=== PATIENT | female | born 1960 | race Caucasian/White ===

== ENCOUNTER 2016-11-18 13:35 | Inpatient (IN) ==
[2016-11-18] MEDS ORDERED: METOCLOPRAMIDE 10 MG/2 ML VIAL IV STA ×2 (14:13→16:40)
[2016-11-18] MEDS ORDERED: PANTOPRAZOLE 40 MG VIAL IV STA (14:13)
[2016-11-18] MEDS ORDERED: SODIUM CHLORIDE 0.9% 1,000 ML IV STA (14:13)
[2016-11-18] MEDS ORDERED: DICYCLOMINE 20 MG/2 ML AMP IM ONE ×2 (14:13→14:56)
[2016-11-18] MEDS ORDERED: ONDANSETRON 4 MG/2 ML VIAL IV STA ×2 (14:13→16:51)
[2016-11-18] MEDS ORDERED: LORazepam 2 MG/1 ML VIAL IV STA (14:13)
--- NOTE | 2016-11-18 14:22 | Emergency Department Note ---
Arrival - Arrival Chief Complaint: Nausea/Vomiting/Diarrhea Stated Complaint: vomiting,back pain,migraine,stomach ED Nursing Triage Note: c/o being evaluated here last night for the same complaint of nuasea/vomiting and diarrhea, states was discharged from here this am around 0300 and dx with a virus., states she was given zofran otd but its coming up and the zofran is not helping her, also states she is having a headache ,+ lower abd.pain and lower back pain Mode of Arrival: Wheelchair Limitations: No Limitations Source: Patient Time Seen by Provider: 11/18/16 14:13 - History of Present Illness HPI Narrative: This 56-year-old white female presents for a second time the last 24 hours for complaints of severe nausea, vomiting, diarrhea, abdominal cramps, and back pain. After thorough workup last night there was no significant pathology discovered. The patient states that since she left she has not been able to keep anything down has been continuously vomiting and having diarrhea without bright red blood or black tarry bowel movements. The patient states that she is unable to control her nausea and vomiting because she cannot keep the Zofran under the tongue in her mouth. She does state that she needs something desperately for pain as in addition to the symptoms last night she is now complaining of back pain and with the back pain a flare of her migraines. This back pain is in absence of dysuria, urgency, or frequency as well as any falls or injuries since seen last night. Onset (ago): hour(s) (Patient presents 24 hours post onset of symptoms) Date of Last Menstrual Period: hyst Allergies/Adverse Reactions: Allergies Allergy/AdvReac Type Severity Reaction Status Date / Time No Known Allergies Allergy Verified 11/18/16 13:56 Home Medications: Home Medications Medication Instructions Recorded Confirmed Type Ondansetron Odt Tab [Zofran Odt] 4 mg PO Q6H PRN #12 tablet 11/18/16 11/18/16 Rx Review of System - Review of System 12 point system: reviewed and no additional remarkable complaints except as stated - Review of System Constitutional: Present: as per HPI Gastrointestinal: Present: as per HPI Genitourinary female: Present: as per HPI Medical,Surgical,& Family Hx - Medical History Cardio: History of: Hypertension Endocrine: History of: Dyslipidemia No history of: Diabetes Mellitus (IDDM) Gastrointestinal: History of: Diverticulitis/ Diverticulosis - Surgical History Abdominal Surgeries: Surgical HX of: Cholecystectomy, Colonoscopy, EGD Reproductive Surgeries: Surgical HX of;: Hysterectomy Orthopedic Surgeries: Surgical HX of;: Total Knee Replacement (left/right) - Social History Smoking Status: Never smoker Frequency of Alcohol Use: None Type of Drug Use: None Exam Physical Examination: GENERAL: Well developed, well nourished emotional white female holding an emesis bag and complaining of pain. HEENT: Normocephalic. No trauma. Moist mucous membranes. EOMI. PERRLA. ENT NML NECK: Supple. No adenopathy. CARDIAC: Regular. No murmurs. Heart rate 60 CHEST: Clear to auscultation. No respiratory distress. O2 sat 97% ABDOMEN: Soft. Midepigastric tenderness. Active bowel sounds. EXTREMITIES: No trauma. Normal ROM. No pedal edema. SKIN: No diaphoresis. No rash. NEURO: Alert. Emotional but neuro intact. No focal deficits. Vital Signs: Vital Signs Temperature 97.1 F L 11/18/16 14:15 Pulse Rate 75 11/18/16 17:00 Respiratory Rate 20 11/18/16 17:00 Blood Pressure 178/98 11/18/16 17:00 O2 Sat by Pulse Oximetry 98 11/18/16 17:00 Course Course Narrative: During the stay in the ER the patient did demonstrate recurrent emesis and dry heaves which would not resolve with antiemetics. - Reevaluation(s) Reevaluation #1: Discussed with patient the fact that we put hospitalize under observation to stabilize her nausea and vomiting. - Consultations Consultation #1: Discussed with hospitalist service who will admit for further evaluation treatment. Results - Labs CBC & BMP: 11/18/16 15:52 11/18/16 15:26 Labs: I reviewed the lab and noted the low potassium. - Impressions EKG: Sinus rhythm at 89 with normal NM interval and QRS duration. Left ventricular hypertrophy noted nonspecific ST changes noted no acute injury pattern noted. - Diagnostic Findings Procedure: KUB x-ray: image reviewed by me, report reviewed by me (Nonspecific gas and feces pattern), X-ray: image reviewed by me, report reviewed by me ( Straightening of the lumbar spine consistent with spasm) Disposition Clinical Impression: Presumed viral gastroenteritis, Hypokalemia, Lumbar spasm Case discussed with: patient Disposition: Still a Patient Condition: Stable Time of Disposition: 17:28
[2016-11-18] MEDS ORDERED: ONDANSETRON 4 MG/2 ML VIAL ONE ×2 (14:56→16:51)
[2016-11-18] MEDS ORDERED: PANTOPRAZOLE 40 MG VIAL IV ONE (14:56)
[2016-11-18] MEDS ORDERED: METOCLOPRAMIDE 10 MG/2 ML VIAL ONE ×2 (14:56→16:51)
[2016-11-18] MEDS ORDERED: LORazepam 2 MG/1 ML VIAL ONE (14:57)
[2016-11-18 15:18] LABS: Apearance,Urine CLOUDY (Clear); Bilirubin,Urine Negative (Negative); Blood, Urine Moderate mg/dL (Negative); Glucose,Urine (UA) Negative (Negative); Hyaline Casts,Urine 1 /LPF (0-3); Ketones,Urine 80 mg/dL (Negative); Mucus,Urine Few /LPF (Occasional); Nitrite,Urine Negative (Negative); Protein,Urine 30 MG/DL; RBC,Urine 15 /HPF (0-4); Squamous Epithelial Cell,Urine Moderate /HPF (0-10); Urine Color Yellow (Yellow); Urine Specific Gravity 1.021 (1.001-1.035); Urine Urobilinogen < 2.0 EU/DL (0.2-1.0); WBC,Urine 2 /HPF (0-6)
--- NOTE | 2016-11-18 15:22 | EKG Report ---
Stationary ECG Study [facility] Test Date: 11/18/2016 3:22:30 PM Pat Name: [facility] ER Department: Room: Gender: F [employer]: ALY : 1960 Requested by: Morgan Reardon Order Number: [id number] Reading MD: REGINO BUSTAMANTE Intervals [place] Rate: 69 P: 53 CT: 173 QRS: 1 QRSD: 95 T: 48 QT: 410 QTc: 429 Interpretive Statements SINUS RHYTHM MINIMAL VOLTAGE CRITERIA FOR LVH, CONSIDER NORMAL VARIANT Electronically Signed On 11-20-16 08:50:34 CDT by REGINO BUSTAMANTE [email or web address]
[2016-11-18 15:25] LABS: Barbiturates Screen,Urine Negative (Negative); Benzodiazepines Screen,Urine Negative (Negative); Cannabinoid Screen,Urine Negative (Negative); Opiate Screen,Urine Positive (Negative); Phencyclidine Screen,Urine Negative (Negative)
--- NOTE | 2016-11-18 15:33 | XRay Report ---
XR lumbar spine AP/LAT Clinical Information: back pain Comparison: None available Findings: Vertebral body heights and alignment are within normal limits. Mild facet arthropathy and disc space loss is noted at L4-5 and L5-S1. Otherwise, intervertebral disc spaces are generally maintained. There is no acute fracture or subluxation identified. No suspicious osseous or soft tissue lesions are identified. Impression: No acute fracture or subluxation in the Lumbar spine. Mild degenerative changes. PROCEDURE INTERPRETED AT [facility] DEPARTMENT OF RADIOLOGY Final Report Signed by: Сергей Stewart
[2016-11-18 16:06] LABS: Basophils % 0.2 % (0.0-0.8); Hematocrit 44.2 VOL% (35.7-47.0); Hemoglobin 15.2 GM/DL (12.0-16.0); Immature Granulocytes % 0.3 %; Immature Granulocytes Absolute 0.03 #; Lymphocytes # 1.5 10*3/uL (1.4-4.0); Lymphocytes % 13.5 % (21.3-54.2); Mean Corpuscular HGB Conc 34.4 GM/DL (32-36); Mean Corpuscular Hemoglobin 30 PG (27-34); Mean Corpuscular Volume 87.4 FL (87-102); Mean Platelet Volume 9.9 FL (9.6-12.0); Monocytes # 0.6 10*3/uL (0.11-0.8); Monocytes % 5.2 % (1.7-12.7); Neutrophils # 8.7 10*3/uL (1.4-7.4); Neutrophils % 80.8 % (38.7-73.9); Platelet Count 292 T/CUMM (130-400); Red Blood Count 5.06 MC/CUMM (3.8-5.5); Red Cell Distribution Width 13.1 % (9.3-17.3); White Blood Count 10.7 T/CUMM (4-12)
--- NOTE | 2016-11-18 16:08 | XRay Report ---
XR abdomen 2V Clinical Information: Abdominal Pain lower abdomen Comparison: None Findings: Bowel gas pattern is nonspecific and within normal limits. No abnormally dilated small bowel loops are identified to suggest obstruction. There is no free air identified. Scattered fecal material is noted throughout colon, which is otherwise nondilated. No abnormal focal soft tissue masses or calcific densities are identified in the abdomen or pelvis. Lung bases appear predominantly clear. There is no acute osseous abnormality. No suspicious osseous lesions are identified. Probable benign bone island within the right iliac wing. Impression: No acute radiographic abnormality in the abdomen. A mild degree of fecal stasis/constipation is suspected. PROCEDURE INTERPRETED AT [facility] DEPARTMENT OF RADIOLOGY Final Report Signed by: Сергей Stewart
[2016-11-18 16:28] LABS: Lactic Acid 1.6 MMOL/L (0.4-2.0)
[2016-11-18 16:31] LABS: Alanine Aminotransferase 68 U/L (13-56); Albumin 4.1 G/DL (3.4-5.0); Alkaline Phosphatase 71 U/L (45-117); Amylase 38 U/L (25-115); Aspartate Amino Transferase 37 U/L (0-37); Blood Urea Nitrogen 10 MG/DL (7-18); Calcium 9.1 MG/DL (8.5-10.1); Glucose 95 MG/DL (74-106); Osmolality,Calculated 271.8 MOS/KG (273-304); Potassium 3.3 MMOL/L (3.5-5.1); Sodium 137 MMOL/L (136-145); Total Protein 8.1 G/DL (6.4-8.3); Troponin I Only < 0.015 NG/ML (0.00-0.045)
[2016-11-18] MEDS ORDERED: KETOROLAC 30 MG/1 ML VIAL IV STA (16:40)
[2016-11-18] MEDS ORDERED: SUMAtriptan 6 MG/0.5 ML VIAL SUBCUT STA (16:40)
[2016-11-18] MEDS ORDERED: POTASSIUM BICARB EFFERVESCENT 25 MEQ TABLET PO ONE ×3 (16:41→16:56)
[2016-11-18] MEDS ORDERED: SUMAtriptan 6 MG/0.5 ML VIAL SUBCUT ONE (16:50)
[2016-11-18] MEDS ORDERED: KETOROLAC 30 MG/1 ML VIAL ONE (16:51)
[2016-11-18] MEDS ORDERED: DOCUSATE SODIUM 100 MG CAPSULE PO PRN (17:41)
[2016-11-18] MEDS ORDERED: ACETAMINOPHEN 325 MG TABLET PO PRN (17:41)
--- NOTE | 2016-11-18 18:11 | Hospitalist History & Physical ---
Assessment and Plan (1) Intractable nausea and vomiting Status: Acute Assessment and plan: admit for IVF and antiemetics. Current Visit: Yes Qualifiers: Vomiting type: unspecified Qualified Code(s): R11.2 - Nausea with vomiting , unspecified (2) Abdominal pain Status: Acute Current Visit: Yes Qualifiers: Abdominal location: left lower quadrant Qualified Code(s): R10.32 - Left lower quadrant pain (3) Gastroenteritis Status: Acute Assessment and plan: admit for supportive care. Current Visit: No History of Present Illness Chief complaint: Nausea, vomiting, diarrhea and abdominal pain History of present illness: Ms. Cruz is a 56 year old female that presents to the emergency department with a 3 day history of abdominal pain nausea vomiting and diarrhea. She reports pain began as left upper quadrant pain 3 days ago. It was followed by nausea vomiting and diarrhea. She reports no hemoptysis hematemesis or hematochezia. She has not been able to keep anything down. She has had 2 ER visits in the last [address] abdomen and pelvis performed last night at midnight shows no evidence of acute bowel injury or infection. Urinalysis unremarkable for infection. The patient has had surgical excision of her gallbladder. She reports the pain is severe in the nausea is even worse. She has had 1 or 2 episodes of vomiting in the emergency department of yellow bilious fluid. Her intractable vomiting is persistent and severe causing her to return to the emergency department for further treatment. Home Medications Medication Instructions Recorded Confirmed Type Ondansetron Odt Tab [Zofran Odt] 4 mg PO Q6H PRN #12 tablet 11/18/16 11/18/16 Rx Allergies Allergy/AdvReac Type Severity Reaction Status Date / Time No Known Allergies Allergy Verified 11/18/16 13:56 Medical,Surgical,& Family Hx - Medical History Cardio: History of: Hypertension Endocrine: History of: Dyslipidemia No history of: Diabetes Mellitus (IDDM) Gastrointestinal: History of: Diverticulitis/ Diverticulosis - Surgical History Abdominal Surgeries: Surgical HX of: Cholecystectomy, Colonoscopy, EGD Reproductive Surgeries: Surgical HX of;: Hysterectomy Orthopedic Surgeries: Surgical HX of;: Total Knee Replacement (left/right) - Family History Family History: Reports;: Family Hypertension - Social History Smoking Status: Never smoker Have you smoked in the last 12 months: No Frequency of Alcohol Use: None Type of Drug Use: None Marital Status: Lives With:: Spouse Functional capacity: independent ambulation 12 point system: reviewed and no additional remarkable complaints except as stated - Gastrointestinal Gastrointestinal: Present: as per HPI, abdominal pain, diarrhea, nausea, vomiting Exam - Constitutional Vitals: Period Temp Pulse Resp BP Sys/Millan Pulse Ox Last 24 Hr 97.1 F-97.1 F 63-118 20-66 167-184/92-103 94-98 General appearance: mild distress Exam: Constitutional System: Mild distress. No tremulousness. Head: Normocephalic, atraumatic. Ears, Nose and Throat System: No pain or tenderness. No epistaxis or discharge Eyes System: Pupils equal, round, and reactive. Extraocular muscles intact. Neck: Supple, without adenopathy, No jugular venous distention. No thyromegaly, neck mass, or prior surgery apparent. Respiratory System: Chest clear to auscultation. Cardiovascular System: Heart with regular rate and rhythm. No murmur. GI System: Abdomen soft, tender to palpation in the left upper quadrant and left lower quadrant. Normo active bowel sounds present. Musculoskeletal System: limbs with no pedal edema. Full distal pulses. Neurological System: No discernable sensory deficit. No aphasia Psychiatric System: Conversation is rational Results - Labs CBC & BMP: 11/18/16 15:52 11/18/16 15:26 Lab Results: I have reviewed the past 24 hour labs - Diagnostic Findings Procedure: Chest x-ray: image reviewed by me, report reviewed by me, CT Abdomen and Pelvis: image reviewed by me, report reviewed by me
[2016-11-18] MEDS ORDERED: PROMETHAZINE 25 MG SUPP RECTAL PRN (18:23)
[2016-11-18] MEDS ORDERED: PROCHLORPERAZINE 10 MG TABLET PO PRN (18:23)
[2016-11-18] MEDS: SODIUM CHLORIDE 0.9% 1,000 ML IV SCH (19:58)
[2016-11-18] MEDS: MORPHINE 2 MG/1 ML SYRINGE IV PRN (20:00)
[2016-11-18] MEDS: ONDANSETRON 4 MG/2 ML VIAL IV PRN (20:04)
[2016-11-18] MEDS: POTASSIUM CHLORIDE RIDER 10 MEQ in PREMIX 1 EACH IV SCH ×3 (20:06→23:01)
[2016-11-18] MEDS: PANTOPRAZOLE 40 MG VIAL IV SCH (21:07)
[2016-11-18] MEDS: PROMETHAZINE 25 MG TABLET PO PRN (21:38)
[2016-11-18] MEDS: METOCLOPRAMIDE 10 MG/2 ML VIAL IV SCH (23:04)
[2016-11-19] MEDS: POTASSIUM CHLORIDE RIDER 10 MEQ in PREMIX 1 EACH IV SCH ×2 (00:21)
[2016-11-19] MEDS: ONDANSETRON 4 MG/2 ML VIAL IV PRN ×3 (01:34→19:29)
[2016-11-19] MEDS: MORPHINE 2 MG/1 ML SYRINGE IV PRN ×6 (01:37→23:32)
[2016-11-19] MEDS: SODIUM CHLORIDE 0.9% 1,000 ML IV SCH ×3 (03:58→20:05)
[2016-11-19] MEDS: PROMETHAZINE 25 MG TABLET PO PRN ×2 (04:01→15:24)
[2016-11-19] MEDS: METOCLOPRAMIDE 10 MG/2 ML VIAL IV SCH ×4 (05:16→23:34)
[2016-11-19 05:43] LABS: Basophils % 0.2 % (0.0-0.8); Hematocrit 43.7 VOL% (35.7-47.0); Hemoglobin 14.9 GM/DL (12.0-16.0); Immature Granulocytes % 0.5 %; Immature Granulocytes Absolute 0.06 #; Lymphocytes # 2.8 10*3/uL (1.4-4.0); Lymphocytes % 22.8 % (21.3-54.2); Mean Corpuscular HGB Conc 34.1 GM/DL (32-36); Mean Corpuscular Hemoglobin 30 PG (27-34); Mean Corpuscular Volume 87.8 FL (87-102); Mean Platelet Volume 9.8 FL (9.6-12.0); Monocytes # 0.8 10*3/uL (0.11-0.8); Monocytes % 6.7 % (1.7-12.7); Neutrophils # 8.7 10*3/uL (1.4-7.4); Neutrophils % 69.8 % (38.7-73.9); Platelet Count 304 T/CUMM (130-400); Red Blood Count 4.98 MC/CUMM (3.8-5.5); Red Cell Distribution Width 12.9 % (9.3-17.3); White Blood Count 12.4 T/CUMM (4-12)
[2016-11-19 06:10] LABS: Calcium 8.5 MG/DL (8.5-10.1); Osmolality,Calculated 264.2 MOS/KG (273-304); Potassium 3.8 MMOL/L (3.5-5.1)
[2016-11-19 06:23] LABS: Magnesium 2.1 MG/DL (1.8-2.4); Thyroid Stimulating Hormone 0.825 uIU/ml (0.358-3.74)
[2016-11-19] MEDS ORDERED: hydrALAZINE 20 MG/1 ML VIAL IV PRN (08:02)
[2016-11-19] MEDS: CIPROFLOXACIN 500 MG TABLET PO SCH ×2 (08:30→20:06)
[2016-11-19] MEDS: VALSARTAN 80 MG TABLET PO SCH (08:30)
[2016-11-19] MEDS: metroNIDAZOLE 500 MG TABLET PO SCH ×3 (08:30→20:06)
[2016-11-19] MEDS: PANTOPRAZOLE 40 MG VIAL IV SCH ×2 (08:31→20:07)
[2016-11-19] MEDS: PROMETHAZINE 25 MG/1 ML VIAL IM PRN ×2 (09:23→22:43)
--- NOTE | 2016-11-19 14:38 | Hospitalist Progress Note ---
Assessment and Plan (1) Intractable nausea and vomiting Status: Acute Assessment and plan: Continue IVF and antiemetics. Consider GI consult for EGD if no improvement. CT scan abdomen and pelvis without significant pathology. Current Visit: Yes Qualifiers: Vomiting type: unspecified Qualified Code(s): R11.2 - Nausea with vomiting , unspecified (2) Abdominal pain Status: Acute Current Visit: Yes Qualifiers: Abdominal location: left lower quadrant Qualified Code(s): R10.32 - Left lower quadrant pain (3) Gastroenteritis Status: Acute Assessment and plan: admitted for supportive care. The patient had low-grade fever last night and was started on Cipro and Flagyl this morning. Leukocytosis is improved prior to antibiotic administration. Current Visit: No Hospitalist: Subjective Interval history: Patient with continued nausea with minimal vomiting. Reports abdominal pain. Requests EGD. I had a lengthy discussion with the patient and her at the bedside. Her nurse was present for the conversation. We went through a long list of differential diagnoses. The patient was started on Cipro and Flagyl due to low-grade fever overnight. Her signs and symptoms point more to a viral gastroenteritis. Will continue IV fluid hydration and antiemetics as well as pain medications and reevaluate for possible discharge home in a.m. Exam - Constitutional Vitals: Period Temp Pulse Resp BP Sys/Millan Pulse Ox Last 24 Hr 97.9 F-100.4 F 65-84 16-20 151-182/80-119 94-99 Exam: Constitutional System: Mild distress. No tremulousness. Head: Normocephalic, atraumatic. Ears, Nose and Throat System: No pain or tenderness. No epistaxis or discharge Eyes System: Pupils equal, round, and reactive. Extraocular muscles intact. Neck: Supple, without adenopathy, No jugular venous distention. No thyromegaly, neck mass, or prior surgery apparent. Respiratory System: Chest clear to auscultation. Cardiovascular System: Heart with regular rate and rhythm. No murmur. GI System: Abdomen soft, tender to palpation in the left upper quadrant and left lower quadrant. Normo active bowel sounds present. Musculoskeletal System: limbs with no pedal edema. Full distal pulses. Neurological System: No discernable sensory deficit. No aphasia Psychiatric System: Conversation is rational Results - Labs CBC & BMP: 11/19/16 05:09 11/19/16 05:09 Lab Results: I have reviewed the past 24 hour labs
[2016-11-20] MEDS: ONDANSETRON 4 MG/2 ML VIAL IV PRN ×4 (03:50→18:10)
[2016-11-20] MEDS: MORPHINE 2 MG/1 ML SYRINGE IV PRN ×4 (03:53→16:54)
[2016-11-20] MEDS: SODIUM CHLORIDE 0.9% 1,000 ML IV SCH ×3 (04:05→22:31)
[2016-11-20] MEDS: METOCLOPRAMIDE 10 MG/2 ML VIAL IV SCH ×3 (05:25→18:10)
[2016-11-20] MEDS: PROMETHAZINE 25 MG TABLET PO PRN ×2 (06:58→12:26)
[2016-11-20] MEDS: PANTOPRAZOLE 40 MG VIAL IV SCH ×2 (08:43→20:37)
[2016-11-20] MEDS: CIPROFLOXACIN 500 MG TABLET PO SCH ×2 (08:43→20:40)
[2016-11-20] MEDS: metroNIDAZOLE 500 MG TABLET PO SCH ×3 (08:43→20:40)
[2016-11-20] MEDS: VALSARTAN 80 MG TABLET PO SCH (08:43)
--- NOTE | 2016-11-20 14:59 | Hospitalist Progress Note ---
Assessment and Plan (1) Gastroenteritis Status: Acute Current Visit: No (2) Abdominal pain Status: Acute Current Visit: Yes Qualifiers: Abdominal location: left lower quadrant Qualified Code(s): R10.32 - Left lower quadrant pain (3) Intractable nausea and vomiting Status: Acute Current Visit: Yes Qualifiers: Vomiting type: unspecified Qualified Code(s): R11.2 - Nausea with vomiting , unspecified Hospitalist: Subjective Interval history: No acute events overnight. Patient still with nausea and abdominal pain. She reports that she has not been able to eat any food due to nausea. Anti-emetics are not working. GI consulted. Exam - Constitutional Vitals: Period Temp Pulse Resp BP Sys/Millan Pulse Ox Last 24 Hr 97.3 F-99.3 F 72-104 17-23 130-189/77-105 95-97 General appearance: over weight - Head Head exam: Present: normocephalic, atraumatic - Eye Eye exam: Present: EOMI Pupils: Present: CRISTOBAL - ENT ENT exam: Present: normal exam - Neck Neck exam: Present: normal inspection - Respiratory Respiratory exam: Present: clear to auscultation bilaterally. Absent: rhonchi, wheezes - Cardiovascular Cardiovascular exam: Present: regular rate and rhythm - GI/Abdominal GI/Abdominal exam: Present: normal bowel sounds, tenderness, soft. Absent: rebound - Extremities Exam Extremities exam: Present: normal inspection - Back Exam Back exam: Present: normal inspection - Neurological Exam Neurological exam: Present: alert, oriented X3 - Psychiatric Psychiatric exam: Present: normal affect, normal mood - Skin Skin exam: Present: warm, intact Results - Labs CBC & BMP: 11/19/16 05:09 11/19/16 05:09
--- NOTE | 2016-11-20 18:20 | Gastrointestinal Consult Note ---
Assessment and Plan (1) Left upper quadrant pain Status: Acute Assessment and plan: This is likely due to gastritis versus peptic ulcer disease. Less likely there may be gastroparesis present, but I suspect with localization of the pain this is more than just gastroenteritis producing this patient's symptoms. We will proceed with upper endoscopy to look for evidence of peptic ulcer disease/ erosions. She currently is denying NSAIDs, but certainly medication reaction can result in the symptoms. The CAT scan fails to show any pseudocyst or pancreatic tail swelling that would account for the pain. There may also be small stones in the ureter that might be accounting for the pain as well again no gross evidence of hydroureter seen. Interestingly the patient did run a temperature on 11/18/[address] Rudd has covered the patient with Cipro and Flagyl. Current Visit: Yes (2) Personal history of colonic polyps Status: Acute Assessment and plan: This patient states that she had 3 colon polyps discovered on colonoscopy done by Dr. Peter approximately 10 years ago. She has not been called for recheck , but typically colonoscopies are done once every 10 years. We will arrange for this later as an outpatient. Current Visit: Yes (3) Hypokalemia, gastrointestinal losses Status: Acute Assessment and plan: The patient has both vomiting as well as diarrhea recently and has likely developed hypokalemia as result of these losses. Agree with repletion through IV and orally as tolerated. Current Visit: Yes (4) Intractable nausea and vomiting Status: Acute Assessment and plan: This is likely a symptom of either peptic ulcer disease, gastritis, or less likely gastroparesis versus gastroenteritis, although fevers may point to the latter as being a potential cause as well. In the short-term I like to cover these patients with acid blocking medications and antinauseants by IV route as much as possible in order to keep them from vomiting up the pills. If we do not find much on upper endoscopy will likely treat the patient supportively/ symptomatically. I am going to hold off on Reglan until we know if she has gastroparesis postop endoscopy. The risks and benefits of the above procedure were discussed with the patient agrees to proceed with this tomorrow. These include but are not limited to: Bleeding, infection, perforation, cardiac and pulmonary compromise. Current Visit: Yes Qualifiers: Vomiting type: unspecified Qualified Code(s): R11.2 - Nausea with vomiting , unspecified History of Present Illness Chief complaint: Nausea/vomiting/fevers/left upper quadrant pain History of present illness: Ms. Cruz is a 56 year old female who has a history of EGD and colonoscopy done approximately 10 years ago at [facility] by Dr. Peter. This was being done secondary to concerns over pain that ended up being secondary to her gallbladder. The colonoscopy however did demonstrate 3 polyps that were removed. The patient has not had subsequent colonoscopy since that time. She now presents with pain in her left upper quadrant and radiation to her left flank which is sharp and stabbing and rated as a 10 out of 10 in intensity worsened with food intake. She does not have much in the way of reflux despite the fact that she has nauseated with vomiting several times per day. She does not recall eating anything that may have given her food poisoning. Initially she did have some diarrhea but this is tapered off and she has not had any bowel movements for the last 3 days. She states that she has a low-grade temperature up to 100.4. She denies use of NSAIDs despite this fever but states that she does take Tylenol PM with some regularity. She has not noticed any coffee grounds in the emesis. She has not noticed any melena or bright red blood per rectum CT scan demonstrates no evidence of acute bowel injury or infection and no gross evidence of pancreatitis. The patient had been seen in the emergency room 2 and yesterday it was elected to bring her into the hospital for further workup. She states that with her pain medication the pain has dissipated from a 10 out of 10 intensity down to a 6 out of 10. She does localize the pain to right over the left upper quadrant and states that this shoots through to the back somewhat suspicious for peptic ulcer disease. She does not recall with the findings of her upper endoscopy were. She is taking Protonix IV twice daily, she is also getting a plethora of other antinauseants including Reglan, Compazine, and 2 types of Phenergan. She has had a history of diverticulitis but states that this is not similar to that pain. Home Medications Medication Instructions Recorded Confirmed Type Ondansetron Odt Tab [Zofran Odt] 4 mg PO Q6H PRN #12 tablet 11/18/16 11/18/16 Rx Allergies Allergy/AdvReac Type Severity Reaction Status Date / Time No Known Allergies Allergy Verified 11/18/16 13:56 Medical,Surgical,& Family Hx - Medical History Cardio: History of: Hypertension Endocrine: History of: Dyslipidemia No history of: Diabetes Mellitus (IDDM) Gastrointestinal: History of: Diverticulitis/ Diverticulosis - Surgical History Abdominal Surgeries: Surgical HX of: Cholecystectomy, Colonoscopy, EGD Reproductive Surgeries: Surgical HX of;: Hysterectomy Orthopedic Surgeries: Surgical HX of;: Total Knee Replacement (left/right) - Family History Family History: Denies;: Family Anesthesia Reaction, Family Cancer, Family Diabetes, Family Heart Disease, Family Hematology, Family Hypertension, Family Psychiatric Problems, Family Stroke, Additional Family History - Social History Smoking Status: Never smoker Frequency of Alcohol Use: None Type of Drug Use: None Review of systems: Constitutional: The patient admits to fever, chills, nausea, and vomiting Eyes: Denies dry eyes, and scleral icterus HENT: She does note occasional headaches Cardiovascular: Denies acute chest pain and claudication Respiratory: Denies shortness of breath, wheezing, and difficulty breathing, denies cough Gastrointestinal: As noted in the HPI Genitourinary: Denies dysuria and hematuria Neurologic: Denies vision loss, and loss of sensation Musculoskeletal: She does have some joint stiffness and states that she needs a second knee replacement--she admits to muscular weakness but no swelling Psychiatric: Denies depression and debra symptoms Heme-Lymph: Denies easy bruising, lymph node enlargement or tenderness, night sweats, excessive bleeding Allergies-immunologic: Denies pruritus and rhinorrhea Exam - Constitutional Vitals: Period Temp Pulse Resp BP Sys/Millan Pulse Ox Last 24 Hr 97.3 F-99.0 F 75-104 16-23 130-189/77-105 95-97 General appearance: mild distress Exam: Constitutional: Well-developed, well-nourished, alert, and in mild distress due to pain and nausea Head and face: Head: Normocephalic atraumatic Eyes: Conjunctiva without injection, no gross scleral icterus, pupils equal and round bilaterally Ears: Intact to conversation in both ears Nose: External appearance is normal, nares patent Mouth: Oral mucous membranes moist without erythema dentition noted to be without erosion Neck: Normal appearance, no masses or tenderness, trachea midline Thyroid: Gland midline and appropriate size for age Respiratory: Normal respiratory effort, clear to auscultation without wheezes, rhonchi or rales Cardiovascular: Regular rate and rhythm, normal S1, S2, the exam is without rubs, murmurs or gallops. Gastrointestinal: Moderately to palpation in the left upper quadrant with slight rebound to this area but no true guarding, normal active bowel sounds, no masses present, no hepatomegaly, no spleen tip felt. Small internal hemorrhoids noted on rectal exam, stool is guaiac negative and brown. Lymphatic: Neck without adenopathy, axilla without lymphadenopathy present Musculoskeletal: Right and left lower extremities with slight evidence of edema Skin and subcutaneous tissue: No rashes or ulcerations noted, normal skin turgor, digits and nails without clubbing/cyanosis/deformities. Neurologic: The patient is grossly oriented to person place and time, cranial nerves show tongue movements are normal with normal tongue extrusion midline, light touch sensation is intact. Psychiatric: No hallucinations or delusions are present, does not appear depressed Results - Labs CBC & BMP: 11/19/16 05:09 11/19/16 05:09
[2016-11-20] MEDS: PROMETHAZINE INJ 25 MG in SODIUM CHLORIDE 0.9% 50 ML IV SCH (20:01)
[2016-11-20] MEDS: HYDROmorphone 2 MG/1 ML VIAL IV PRN (20:34)
[2016-11-21] MEDS: HYDROmorphone 2 MG/1 ML VIAL IV PRN ×5 (01:00→20:36)
[2016-11-21] MEDS: PROMETHAZINE INJ 25 MG in SODIUM CHLORIDE 0.9% 50 ML IV SCH ×3 (01:40→14:19)
[2016-11-21] MEDS: SODIUM CHLORIDE 0.9% 1,000 ML IV SCH ×3 (03:05→17:40)
[2016-11-21 06:27] LABS: Basophils % 0.5 % (0.0-0.8); Hematocrit 41.3 VOL% (35.7-47.0); Immature Granulocytes % 0.6 %; Immature Granulocytes Absolute 0.05 #; Lymphocytes % 35.8 % (21.3-54.2); Mean Corpuscular HGB Conc 33.9 GM/DL (32-36); Mean Corpuscular Hemoglobin 30 PG (27-34); Mean Corpuscular Volume 87.3 FL (87-102); Mean Platelet Volume 9.6 FL (9.6-12.0); Monocytes # 0.7 10*3/uL (0.11-0.8); Monocytes % 8.5 % (1.7-12.7); Neutrophils # 4.7 10*3/uL (1.4-7.4); Neutrophils % 54.6 % (38.7-73.9); Platelet Count 265 T/CUMM (130-400); Red Blood Count 4.73 MC/CUMM (3.8-5.5); Red Cell Distribution Width 12.8 % (9.3-17.3); White Blood Count 8.5 T/CUMM (4-12)
[2016-11-21 06:59] LABS: Calcium 8.2 MG/DL (8.5-10.1); Magnesium 2.1 MG/DL (1.8-2.4); Osmolality,Calculated 276.4 MOS/KG (273-304); Potassium 3.2 MMOL/L (3.5-5.1)
[2016-11-21] MEDS: PANTOPRAZOLE 40 MG VIAL IV SCH (08:42)
[2016-11-21] MEDS: POTASSIUM CHLORIDE RIDER 10 MEQ in PREMIX 1 EACH IV SCH ×4 (08:47→11:30)
[2016-11-21] MEDS ORDERED: PROPOFOL 200 MG/20 ML VIAL IV ONE (13:51)
[2016-11-21] MEDS ORDERED: LIDOCAINE 2% 5 ML VIAL ONE (13:51)
--- NOTE | 2016-11-21 14:03 | Operative Note ---
Date of procedure: 11/21/16 Pre-op diagnosis: Left upper quadrant pain, intractable nausea and vomiting Post-op diagnosis: other Procedure: PROCEDURE: Esophagogastroduodenoscopy (EGD) with cold biopsy for pathology REFERRING PHYSICIAN: Leslie Kilgore MD INDICATIONS: Left upper quadrant pain, and intractable nausea and vomiting with some reflux. The prior H&P was reviewed and interrim changes are as noted : No change from GI consultation yesterday ENDOSCOPIST: Alvaro Nix MD ENDOSCOPE: Olympus Video 100 System upper endoscope ASA CLASS: 3 EXAM: CV: regular rate and rhythm respiratory: Clear without wheezes abdominal: active bowel sounds MEDICATION: Per nursing anesthesia protocol, see their notes PROCEDURE: After discussion of the potential risks and benefits of upper endoscopy, the informed consent was obtained. The patient was then placed in the left lateral decubitus position where sedation was achieved as noted above. Esophageal intubation was performed without difficulty, and the endoscope was advanced through the esophagus, stomach and duodenum. A slow withdrawal was then performed with retroflexion in the stomach for careful inspection of the incisura angularis, fundus and cardia. The scope was then returned to a neutral position and withdrawn through the esophagus. The patient tolerated the procedure well and without complication. BIOPSIES: Gastric antrum/body PHOTOGRAPHS: Obtained FINDINGS: Hypopharynx and Larynx: normal Esohagoscopy Upper and middle thirds: Normal Lower third normal Esophogastric junctions: No gross evidence of esophagitis or Holland's, no stricturing Gastroscopy: Cardia/Fundus: Scant amount of retained clear fluid noted here Body: Moderate nonerosive diffuse gastritis, biopsied Antrum and pylorus severe nonerosive diffuse gastritis, biopsied Duodenoscopy: Bulb moderate erosive duodenitis, likely the source of the patient's pain Second and third portions: Normal-appearing duodenum IMPRESSION: Moderate nonerosive diffuse gastritis in a patient with moderate erosive duodenitis likely the source of her nausea and vomiting as well as pain status post biopsy RECOMMENDATIONS: Follow up for biopsy results in 1-2 weeks by phone [phone] Continue anti-gastroesophageal reflux measures (avoid carbonated and acidic beverages, avoid eating within 2 hours of bedtime, avoid tight fitting clothing , and elevate the front bed posts 6 inches prior to sleeping. Will observe the patient on a solid diet today as well as Protonix orally twice daily to see whether or not she improves to the point where she could potentially go home tomorrow if she tolerates these medications without vomiting. It will take days for the pain to go away, unfortunately, as she heals. Alvaro Nix MD COPY TO: Dr. Leslie Kilgore MD Anesthesia: MAC Surgeon / Physician: Alvaro Nix Estimated blood loss: minimal Specimens: other (Gastric antrum/body) Condition: stable Disposition: post procedure unit (G.I. Suite) Results - Labs CBC & BMP: 11/21/16 05:20 11/21/16 12:55 Discharge Plan - Discharge Medications No Action Ondansetron Odt Tab [Zofran Odt] 4 mg PO Q6H PRN #12 tablet PRN Reason: Nausea - Follow Up or Referral - Forms/Instructions
--- NOTE | 2016-11-21 14:08 | Hospitalist Progress Note ---
Assessment and Plan (1) Gastroenteritis Status: Acute Current Visit: No (2) Abdominal pain Status: Acute Assessment and plan: GI consulted EGD today On ciprofloxacin and flagyl Current Visit: Yes Qualifiers: Abdominal location: left lower quadrant Qualified Code(s): R10.32 - Left lower quadrant pain (3) Intractable nausea and vomiting Status: Acute Current Visit: Yes Qualifiers: Vomiting type: unspecified Qualified Code(s): R11.2 - Nausea with vomiting , unspecified Hospitalist: Subjective Interval history: No acute events overnight. Reports that nausea is much improved with scheduled anti-emetics. Pain is also much better today. Potassium was low this morning, being replaced before EGD today. F/u EGD results. GI assisting. Exam - Constitutional Vitals: Period Temp Pulse Resp BP Sys/Millan Pulse Ox Last 24 Hr 97.4 F-98.3 F 78-92 16-18 84-152/58-092 92-99 General appearance: over weight - Head Head exam: Present: normocephalic, atraumatic - Eye Eye exam: Present: EOMI Pupils: Present: CRISTOBAL - ENT ENT exam: Present: normal exam - Neck Neck exam: Present: normal inspection - Respiratory Respiratory exam: Present: clear to auscultation bilaterally. Absent: rhonchi, wheezes - Cardiovascular Cardiovascular exam: Present: regular rate and rhythm - GI/Abdominal GI/Abdominal exam: Present: hypoactive bowel sounds, soft. Absent: tenderness, rebound - Extremities Exam Extremities exam: Present: normal inspection - Back Exam Back exam: Present: normal inspection - Neurological Exam Neurological exam: Present: alert, oriented X3 - Psychiatric Psychiatric exam: Present: normal affect, normal mood - Skin Skin exam: Present: warm, intact Results - Labs CBC & BMP: 11/21/16 05:20 11/21/16 12:55
--- NOTE | 2016-11-21 14:10 | Anesthesia Post-Op ---
Anesthesia Post OP - Post Ansesthetic Evaluation Patient seen in post op: Yes Resp: within normal limits CV: within normal limits Mental: within normal limits Temp: within normal limits Ccxy-Ey-Wixgnwtll: within normal limits Nausea and Vomiting: within normal limits Pain: within normal limits
--- NOTE | 2016-11-21 14:16 | Gastrointestinal Progress Note ---
Assessment and Plan (1) Left upper quadrant pain Status: Acute Assessment and plan: This is likely due to gastritis versus peptic ulcer disease. Less likely there may be gastroparesis present, but I suspect with localization of the pain this is more than just gastroenteritis producing this patient's symptoms. We will proceed with upper endoscopy to look for evidence of peptic ulcer disease/ erosions. She currently is denying NSAIDs, but certainly medication reaction can result in the symptoms. The CAT scan fails to show any pseudocyst or pancreatic tail swelling that would account for the pain. There may also be small stones in the ureter that might be accounting for the pain as well again no gross evidence of hydroureter seen. Interestingly the patient did run a temperature on 11/18/[address] Rudd has covered the patient with Cipro and Flagyl. 11/21/16--the patient has been doing well today and upper endoscopy demonstrates a moderate nonerosive gastritis combined with a moderate erosive duodenitis. This should respond to acid blockade. Biopsies are pending for Helicobacter pylori. If she does well with her brat diet and with oral Protonix she could likely be discharged tomorrow to utilize the prescription that I have left in the front of the chart. I do not feel strongly about continuing her antibiotics , we will leave this up to the hospitalist. I can contact the patient with the biopsy results once these become available. Current Visit: Yes (2) Personal history of colonic polyps Status: Acute Assessment and plan: This patient states that she had 3 colon polyps discovered on colonoscopy done by Dr. Peter approximately 10 years ago. She has not been called for recheck , but typically colonoscopies are done once every 10 years. We will arrange for this later as an outpatient. 11/21/16--the patient needs to contact my office in order to schedule colonoscopy as an outpatient perhaps 2 weeks to a month down the road once she is released from the hospital. Again she can be discharged tomorrow if she is doing well with the diet and oral Protonix. Current Visit: Yes (3) Hypokalemia, gastrointestinal losses Status: Acute Assessment and plan: The patient has both vomiting as well as diarrhea recently and has likely developed hypokalemia as result of these losses. Agree with repletion through IV and orally as tolerated. 11/21/16--The patient has had her potassium improved at this point. She can be discharged once she is able to tolerate p.o. adequately. Current Visit: Yes (4) Intractable nausea and vomiting Status: Acute Assessment and plan: This is likely a symptom of either peptic ulcer disease, gastritis, or less likely gastroparesis versus gastroenteritis, although fevers may point to the latter as being a potential cause as well. In the short-term I like to cover these patients with acid blocking medications and antinauseants by IV route as much as possible in order to keep them from vomiting up the pills. If we do not find much on upper endoscopy will likely treat the patient supportively/ symptomatically. I am going to hold off on Reglan until we know if she has gastroparesis postop endoscopy. The risks and benefits of the above procedure were discussed with the patient agrees to proceed with this tomorrow. These include but are not limited to: Bleeding, infection, perforation, cardiac and pulmonary compromise. 11/21/16--This appears to be resolved at this point. We will continue to observe the patient on the new diet. Potential discharge tomorrow. Current Visit: Yes Qualifiers: Vomiting type: unspecified Qualified Code(s): R11.2 - Nausea with vomiting , unspecified Gastroenterology - PN: Subj Interval history: The patient is tolerating her clear liquids well now, no nausea or vomiting since started on [id number]-[id number]-[id number] Phenergan. Her upper endoscopy demonstrates a moderate diffuse gastritis and moderate erosive duodenitis proximally. She states that she feels well enough to start eating a solid diet, will write her for a BRAT diet accordingly. Exam (Progress Note) - Constitutional Vitals: Period Temp Pulse Resp BP Sys/Millan Pulse Ox Last 24 Hr 97.4 F-98.3 F 78-99 15-18 84-152/53-092 92-99 General appearance: no acute distress - Eye Eye exam: Present: EOMI Pupils: Present: CRISTOBAL - Respiratory Respiratory exam: Present: clear to auscultation bilaterally - Cardiovascular Cardiovascular exam: Present: regular rate and rhythm - GI/Abdominal GI/Abdominal exam: Present: normal bowel sounds, soft. Absent: distended, guarding, tenderness, rebound - Back Exam Back exam: Present: normal inspection - Neurological Exam Neurological exam: Present: alert, oriented X3, CN II-XII intact. Absent: motor sensory deficit - Psychiatric Psychiatric exam: Present: normal affect, normal mood - Skin Skin exam: Present: warm Results - Labs CBC & BMP: 11/21/16 05:20 11/21/16 12:55
[2016-11-21] MEDS: metroNIDAZOLE 500 MG TABLET PO SCH ×3 (14:19→20:37)
[2016-11-21] MEDS: VALSARTAN 80 MG TABLET PO SCH (14:59)
[2016-11-21] MEDS: CIPROFLOXACIN 500 MG TABLET PO SCH ×2 (14:59→20:37)
[2016-11-21] MEDS: PANTOPRAZOLE 40 MG TABLET PO SCH (18:03)
[2016-11-21] MEDS: ONDANSETRON 4 MG/2 ML VIAL IV PRN (20:35)
[2016-11-22] MEDS: HYDROmorphone 2 MG/1 ML VIAL IV PRN ×3 (00:14→08:16)
[2016-11-22] MEDS: SODIUM CHLORIDE 0.9% 1,000 ML IV SCH ×3 (01:47→18:41)
[2016-11-22] MEDS: VALSARTAN 80 MG TABLET PO SCH (08:13)
[2016-11-22] MEDS: CIPROFLOXACIN 500 MG TABLET PO SCH (08:13)
[2016-11-22] MEDS: metroNIDAZOLE 500 MG TABLET PO SCH ×2 (08:13→14:12)
[2016-11-22] MEDS: PANTOPRAZOLE 40 MG TABLET PO SCH ×2 (08:14→18:41)
--- NOTE | 2016-11-22 10:56 | Pathology Report from [facility] ---
ACCESSION # : [id number] PATIENT NAME : [place], [place] ORDERING DR : Alvaro Nix MD CLINICAL HX: Abdominal pain POST-OP DX: Gastritis SPECIMEN INFO: SHAVONNE GROSS DESCRIPTION: The specimen is received in formalin labeled with the patient 's name and consists of an aggregate of pink-padilla tissue measuring 0.9 x 0.4 cm. Submitted in one cassette. DIAGNOSIS FOR [facility]: [facility] BIOPSIES: Chronic gastritis. H. pylori not seen on special stain. SERVICE DATE: 11/22/2016 REPORT DATE: 11/22/2016 PATHOLOGIST: Tye Salcedo M.D. [facility]
--- NOTE | 2016-11-22 11:33 | Discharge Summary ---
Hospital Course - Hospital Course Hospital Course: Ms. Cruz is a 56 year old female that presented to the emergency department with a 3 day history of abdominal pain, nausea vomiting and diarrhea. She reported pain began as left upper quadrant pain 3 days before admission. It was followed by nausea, vomiting and diarrhea. She reported no hemoptysis hematemesis or hematochezia. She has not been able to keep anything down. She has had 2 ER visits in the last [address] abdomen and pelvis performed showed no evidence of acute bowel injury or infection. Urinalysis unremarkable for infection. The patient has had surgical excision of her gallbladder. Patient was admitted for gastroenteritis. She became febrile, started on ciprofloxacin and flagyl. Patient's nausea and abdominal pain did not improve. GI was consulted. EGD was performed, which showed moderate nonerosive diffuse gastritis with moderate erosive duodenitis. Patient is now able to tolerate po intake. She has now reached maximum benefit of inpatient stay and will be discharged home. - Time spent with patient Time with patient DS: Less than 30 minutes Diagnosis - Discharge Diagnosis (1) Gastroenteritis Status: Resolved (2) Abdominal pain Status: Resolved (3) Intractable nausea and vomiting Status: Resolved Discharge Plan - Discharge Data Condition at Discharge: Stable Discharge Diet: high fiber diet Activity: resume usual activities as tolerated Hygiene: no restrictions Weight Bearing at Discharge: weight bear as tolerated Driving: no restrictions Contact your physician if you experience:: fever over 101 - Discharge Medications New Pantoprazole Tab [Protonix Tab] 40 mg PO BID@0700,1900 #60 tablet Promethazine Tab [Phenergan Tab] 25 mg PO Q6H PRN #30 tablet PRN Reason: Nausea/Vomiting Valsartan [Diovan] 80 mg PO DAILY #30 tablet Zolpidem [Ambien] 10 mg PO BEDTIME #30 tablet HYDROcodone/ACETAMIN 7.5-325 [[place] 7.5-325] 1 tablet PO Q4H PRN #30 tablet PRN Reason: Pain Moderate (4-7) Continue Ondansetron Odt Tab [Zofran Odt] 4 mg PO Q6H PRN #12 tablet PRN Reason: Nausea - Follow Up or Referral - Forms/Instructions Exam - Constitutional Vitals: Period Temp Pulse Resp BP Sys/Millan Pulse Ox Last 24 Hr 97.5 F-98.6 F 75-99 15-18 89-135/53-092 92-100 General appearance: over weight - Head Head exam: Present: normocephalic, atraumatic - Eye Eye exam: Present: EOMI Pupils: Present: CRISTOBAL - ENT ENT exam: Present: normal exam - Neck Neck exam: Present: normal inspection - Respiratory Respiratory exam: Present: clear to auscultation bilaterally. Absent: rhonchi, wheezes - Cardiovascular Cardiovascular exam: Present: regular rate and rhythm - GI/Abdominal GI/Abdominal exam: Present: normal bowel sounds, soft. Absent: tenderness, rebound - Extremities Exam Extremities exam: Present: normal inspection - Back Exam Back exam: Present: normal inspection - Neurological Exam Neurological exam: Present: alert, oriented X3 - Psychiatric Psychiatric exam: Present: normal affect, normal mood - Skin Skin exam: Present: warm, intact Discharge Results Procedures and tests throughout hospitalization: Pending Orders 11/21/16 Stool Culture/Campy/Yersinia Routine Labs on day of discharge: Labs from last 24 hours 11/21/16 12:55 Potassium 4.0 DS: Provider Date of admission: 11/18/16 17:29 Primary care physician: . No PCP Attending physician on admission: Mona Rudd MD Consults: 11/18/16 18:11 Consult to Pharmacy [CONS] Routine Reason for Pharmacy Consult: Adjust Meds Renal Funct 11/20/16 09:45 Consult to Physician [CONS] Routine Comment: abdominal pain, intractable nausea Consulting Provider: Alvaro Nix Person Notified: vera Date Notified: 11/20/16 Time Notified: 12:38 Consult Notification Comment: 11/20/16 18:13 Consult to Anesthesiology [CONS] Routine Consulting Provider: Reason for Anesthesiology: Pre-op Clearance Discharging clinician: Leslie Kilgore MD
--- NOTE | 2016-11-22 13:56 | Gastrointestinal Progress Note ---
Assessment and Plan (1) Left upper quadrant pain Status: Acute Assessment and plan: This is likely due to gastritis versus peptic ulcer disease. Less likely there may be gastroparesis present, but I suspect with localization of the pain this is more than just gastroenteritis producing this patient's symptoms. We will proceed with upper endoscopy to look for evidence of peptic ulcer disease/ erosions. She currently is denying NSAIDs, but certainly medication reaction can result in the symptoms. The CAT scan fails to show any pseudocyst or pancreatic tail swelling that would account for the pain. There may also be small stones in the ureter that might be accounting for the pain as well again no gross evidence of hydroureter seen. Interestingly the patient did run a temperature on 11/18/[address] Rudd has covered the patient with Cipro and Flagyl. 11/21/16--the patient has been doing well today and upper endoscopy demonstrates a moderate nonerosive gastritis combined with a moderate erosive duodenitis. This should respond to acid blockade. Biopsies are pending for Helicobacter pylori. If she does well with her brat diet and with oral Protonix she could likely be discharged tomorrow to utilize the prescription that I have left in the front of the chart. I do not feel strongly about continuing her antibiotics , we will leave this up to the hospitalist. I can contact the patient with the biopsy results once these become available. 11/22/16--the patient's biopsies have come back showing no evidence of Helicobacter pylori. She should do quite well on the Protonix prescription provided. She can follow-up with me in the office as needed. Current Visit: Yes (2) Personal history of colonic polyps Status: Acute Assessment and plan: This patient states that she had 3 colon polyps discovered on colonoscopy done by Dr. Peter approximately 10 years ago. She has not been called for recheck , but typically colonoscopies are done once every 10 years. We will arrange for this later as an outpatient. 11/21/16--the patient needs to contact my office in order to schedule colonoscopy as an outpatient perhaps 2 weeks to a month down the road once she is released from the hospital. Again she can be discharged tomorrow if she is doing well with the diet and oral Protonix. 11/22/16--This patient needs a colonoscopy scheduled at discharge. I will write an order for this walking out the door. Current Visit: Yes (3) Hypokalemia, gastrointestinal losses Status: Acute Assessment and plan: The patient has both vomiting as well as diarrhea recently and has likely developed hypokalemia as result of these losses. Agree with repletion through IV and orally as tolerated. 11/21/16--The patient has had her potassium improved at this point. She can be discharged once she is able to tolerate p.o. adequately. 11/22/16--Resolved yesterday. Current Visit: Yes (4) Intractable nausea and vomiting Status: Resolved Assessment and plan: This is likely a symptom of either peptic ulcer disease, gastritis, or less likely gastroparesis versus gastroenteritis, although fevers may point to the latter as being a potential cause as well. In the short-term I like to cover these patients with acid blocking medications and antinauseants by IV route as much as possible in order to keep them from vomiting up the pills. If we do not find much on upper endoscopy will likely treat the patient supportively/ symptomatically. I am going to hold off on Reglan until we know if she has gastroparesis postop endoscopy. The risks and benefits of the above procedure were discussed with the patient agrees to proceed with this tomorrow. These include but are not limited to: Bleeding, infection, perforation, cardiac and pulmonary compromise. 11/21/16--This appears to be resolved at this point. We will continue to observe the patient on the new diet. Potential discharge tomorrow. 11/22/16--This is now controlled. Patient may need occasional Phenergan which has been written for her as well. Current Visit: Yes Qualifiers: Vomiting type: unspecified Qualified Code(s): R11.2 - Nausea with vomiting , unspecified Gastroenterology - PN: Subj Interval history: No new complaints, the patient is still having some mild epigastric pain, she is waiting for her to pick her up to go home today. She has her prescriptions. Exam (Progress Note) - Constitutional Vitals: Period Temp Pulse Resp BP Sys/Millan Pulse Ox Last 24 Hr 97.5 F-98.6 F 75-99 15-18 89-125/51-80 94-100 General appearance: no acute distress - Eye Eye exam: Present: EOMI - Respiratory Respiratory exam: Present: clear to auscultation bilaterally. Absent: rales, rhonchi, stridor - Cardiovascular Cardiovascular exam: Present: regular rate and rhythm - GI/Abdominal GI/Abdominal exam: Present: normal bowel sounds, tenderness (Mild epigastric tenderness), soft. Absent: distended, guarding, rebound - Extremities Exam Extremities exam: Present: normal inspection - Neurological Exam Neurological exam: Present: alert, oriented X3 - Psychiatric Psychiatric exam: Present: normal affect, normal mood - Skin Skin exam: Present: warm Results - Labs CBC & BMP: 11/21/16 05:20 11/21/16 12:55 Specialty Discharge - Follow Up or Referrals
[2016-11-22 17:04] VITALS: BP 112/66
== END 2016-11-22 19:15 | disposition home or self-care (01) | DRG 392 ==
LOC: N.EDINP 13:35 → N.ED 13:35 → OBSVTOIN 17:29 → SUATTDRO 17:29 → N.5E 19:10
PROVIDERS: ADMIT Family Medicine; ATTEND Internal Medicine

== ENCOUNTER 2016-11-23 23:05 | Inpatient (IN) ==
[2016-11-23] MEDS ORDERED: PANTOPRAZOLE 40 MG VIAL IV STA (23:54)
[2016-11-24] MEDS ORDERED: PANTOPRAZOLE 40 MG VIAL IV ONE (00:05)
--- NOTE | 2016-11-24 00:06 | Emergency Department Note ---
Julian Flores Brittany, am scribing for, and in the presence of, Aguila Farah MD 23:58. Gagan Flores Robert M, MD, personally performed the services described in this documentation, ascribed by Jewell Jordan in my presence, and it is both accurate and complete [id number] . Arrival - Arrival Chief Complaint: Nausea/Vomiting/Diarrhea Stated Complaint: n/v/ abdominal pain ED Nursing Triage Note: nausea, vomiting, abdominal pain after eating dinner. Mode of Arrival: Stretcher Limitations: No Limitations Source: Patient, RN Notes Reviewed Time Seen by Provider: 11/23/16 23:52 - History of Present Illness HPI Narrative: Patient is a 56 y/o white female presenting to the ED accompanied by with c/o severe abdominal pain with an onset of tonight. Patient states that after eating diner she immediately began to experience abdominal pain, with which nausea and vomiting episodes followed thereafter. She describes her abdominal pain as "feels like someone is taking a knife and cutting my insides out." Patient has been seen twice over the past weekend and was admitted to the hospitalist due to her primary care provider being in [place], [place]. Patient during hospital stay had a GI scope performed and was found to have ulcers and a very inflamed and irritated area. She was discharged yesterday, November 22. In room patient is hyperemotional during history and physical. She has no other complaint/pain. Allergies/Adverse Reactions: Allergies Allergy/AdvReac Type Severity Reaction Status Date / Time No Known Allergies Allergy Verified 11/18/16 13:56 Home Medications: Home Medications Medication Instructions Recorded Confirmed Type Ondansetron Odt Tab [Zofran Odt] 4 mg PO Q6H PRN #12 tablet 11/18/16 11/18/16 Rx HYDROcodone/ACETAMIN 7.5-325 1 tablet PO Q4H PRN #30 tablet 11/22/16 Rx [[place] 7.5-325] Pantoprazole Tab [Protonix Tab] 40 mg PO BID@0700,1900 #60 tablet 11/22/16 Rx Promethazine Tab [Phenergan Tab] 25 mg PO Q6H PRN #30 tablet 11/22/16 Rx Valsartan [Diovan] 80 mg PO DAILY #30 tablet 11/22/16 Rx Zolpidem [Ambien] 10 mg PO BEDTIME #30 tablet 11/22/16 Rx Review of System - Review of System 12 point system: reviewed and no additional remarkable complaints except as stated - Review of System Constitutional: Absent: chills, fever Gastrointestinal: Present: abdominal pain, nausea, vomiting. Absent: hematemesis, melena, hematochezia Medical,Surgical,& Family Hx - Medical History Cardio: History of: Hypertension Neurology: No history of: Brain Aneurysm, Cerebral Hemorrhage, Cerebrovascular Accident , Cerebral Palsy, Dementia, Migraine, Multiple Sclerosis, Parkinson's Disease, Peripheral Neuropathy, Seizures, TIA, Vertigo, Neurologocal Cancer Endocrine: History of: Dyslipidemia No history of: Diabetes Mellitus (IDDM) Gastrointestinal: History of: Diverticulitis/ Diverticulosis, GI Problems (hx of ulcers) - Surgical History Thoracic Surgeries: Patient denies;: Lobectomy Neurologic Surgeries: Patient denies: Brain Aneurysm, Cerebral Hemorrhage, Neurologic Surgery Abdominal Surgeries: Surgical HX of: Cholecystectomy, Colonoscopy, EGD Reproductive Surgeries: Surgical HX of;: Hysterectomy Orthopedic Surgeries: Surgical HX of;: Total Knee Replacement (left/right) - Family History Family History: Denies;: Family Anesthesia Reaction, Family Cancer, Family Diabetes, Family Heart Disease, Family Hypertension, Family Psychiatric Problems, Family Stroke - Social History Smoking Status: Never smoker Frequency of Alcohol Use: None Type of Drug Use: None Exam Vital Signs: Vital Signs Temperature 98.1 F 11/23/16 23:20 Pulse Rate 110 H 11/23/16 23:20 Respiratory Rate 20 11/23/16 23:20 Blood Pressure 177/130 11/23/16 23:20 O2 Sat by Pulse Oximetry 98 11/23/16 23:20 - General General appearance: alert, other (hyperemotional about current symptoms) - Head Head exam: Present: atraumatic, normocephalic, normal inspection - Eye Eye exam: Present: normal appearance, PERRL, EOMI - ENT ENT exam: Present: normal exam, normal oropharynx - Neck Neck exam: Present: normal inspection, full ROM, trachea midline - Chest Chest inspection: Present: normal inspection, symmetric chest wall rise - Respiratory Respiratory exam: Present: normal lung sounds bilaterally. Absent: rales, rhonchi, wheezes - Cardiovascular Cardiovascular exam: Present: regular rate, normal rhythm, normal heart sounds. Absent: murmur, rubs, gallop - Abdominal Exam Abdominal exam: Present: soft, normal bowel sounds. Absent: distention, tenderness - Extremities Exam Extremities exam: Present: normal inspection - Back Exam Back exam: Present: normal inspection - Neurological Exam Neurological exam: Present: alert, oriented X3, CN II-XII intact. Absent: motor sensory deficit - Psychiatric Psychiatric exam: Present: normal affect, normal mood - Skin Skin exam: Present: warm, dry, intact, normal color Course - Reevaluation(s) Reevaluation #1: The patient is hyper dramatic and presents with over emphasis of her symptoms. After reviewing Dr. Nix's discharge summary it appears that she does have some duodenitis and mild gastritis which she is treating with Protonix. Time: 00:03 Reevaluation #2: Of note, the patient had CHIEF NURSE aware checked and it appears that she has had several prescriptions for Subutex and additionally at the same time [place] in June. This is somewhat puzzling as Subutex if used in a opiate substitution therapy/outpatient rehab setting should be relatively regularly dosed at 2 strips daily. This likely explains a large portion of her symptoms. It is also likely that this is why she was requesting Dilaudid. Time: 02:35 - Consultations Consultation #1: The hospitalist was paged and is in a code. He will call me when he gets done. Time: 01:04 Results - Labs CBC & BMP: 11/23/16 23:54 11/23/16 23:54 Lab Results: I have reviewed the patients labs Labs: Lab Results WBC 10.8 T/CUMM (4-12) 11/23/16 23:54 RBC 5.53 MC/CUMM (3.8-5.5) H 11/23/16 23:54 Hgb 16.7 GM/DL (12.0-16.0) H D 11/23/16 23:54 Hct 49.3 VOL% (35.7-47.0) H 11/23/16 23:54 MCV 89.2 FL (87-102) 11/23/16 23:54 MCH 30 PG (27-34) 11/23/16 23:54 MCHC 33.9 GM/DL (32-36) 11/23/16 23:54 RDW 13.1 % (9.3-17.3) 11/23/16 23:54 Plt Count 285 T/CUMM (130-400) 11/23/16 23:54 MPV 9.6 FL (9.6-12.0) 11/23/16 23:54 Neut % (Auto) 80.2 % (38.7-73.9) H 11/23/16 23:54 Lymph % (Auto) 14.4 % (21.3-54.2) L 11/23/16 23:54 [place] % (Auto) 4.7 % (1.7-12.7) 11/23/16 23:54 Eos % (Auto) 0.1 % (0.00-10.9) 11/23/16 23:54 Baso % (Auto) 0.3 % (0.0-0.8) 11/23/16 23:54 Neut # (Auto) 8.6 10*3/uL (1.4-7.4) H 11/23/16 23:54 Lymph # (Auto) 1.6 10*3/uL (1.4-4.0) 11/23/16 23:54 [place] # (Auto) 0.5 10*3/uL (0.11-0.8) 11/23/16 23:54 Eos # (Auto) 0.0 10*3/uL (0.0-0.87) 11/23/16 23:54 Baso # (Auto) 0.0 10*3/uL (0.0-0.2) 11/23/16 23:54 Immature Gran % 0.3 % 11/23/16 23:54 Nucleated RBC % 0.0 /100WBC 11/23/16 23:54 Immature Gran # 0.03 # 11/23/16 23:54 Nucleated RBCs # 0.00 10*3/uL 11/23/16 23:54 Sodium 139 MMOL/L (136-145) 11/23/16 23:54 Potassium 3.2 MMOL/L (3.5-5.1) L 11/23/16 23:54 Chloride 102 MMOL/L (98-107) 11/23/16 23:54 Carbon Dioxide 28 MMOL/L (21-32) 11/23/16 23:54 Anion Gap 12.2 MMOL/L (5.0-15.0) 11/23/16 23:54 BUN 8 MG/DL (7-18) 11/23/16 23:54 Creatinine 0.80 MG/DL (0.55-1.02) 11/23/16 23:54 GFR Calculation 87 ML/MIN 11/23/16 23:54 BUN/Creatinine Ratio 10.00 RATIO (6.00-20.00) 11/23/16 23:54 Glucose 130 MG/DL (74-106) H 11/23/16 23:54 Calculated Osmolality 276.5 MOS/KG (273-304) 11/23/16 23:54 Calcium 9.1 MG/DL (8.5-10.1) 11/23/16 23:54 Magnesium 1.9 MG/DL (1.8-2.4) 11/23/16 23:54 Disposition Clinical Impression: Intractable nausea and vomiting, Left upper quadrant abdominal pain, Gastritis/ duodenitis, Hypokalemia Case discussed with: patient, patient's family Disposition: Still a Patient Condition: Stable Time of Disposition: 01:04
[2016-11-24 00:32] LABS: Basophils % 0.3 % (0.0-0.8); Eosinophils % 0.1 % (0.00-10.9); Hematocrit 49.3 VOL% (35.7-47.0); Hemoglobin 16.7 GM/DL (12.0-16.0); Immature Granulocytes % 0.3 %; Immature Granulocytes Absolute 0.03 #; Lymphocytes # 1.6 10*3/uL (1.4-4.0); Lymphocytes % 14.4 % (21.3-54.2); Mean Corpuscular HGB Conc 33.9 GM/DL (32-36); Mean Corpuscular Hemoglobin 30 PG (27-34); Mean Corpuscular Volume 89.2 FL (87-102); Mean Platelet Volume 9.6 FL (9.6-12.0); Monocytes # 0.5 10*3/uL (0.11-0.8); Monocytes % 4.7 % (1.7-12.7); Neutrophils # 8.6 10*3/uL (1.4-7.4); Neutrophils % 80.2 % (38.7-73.9); Platelet Count 285 T/CUMM (130-400); Red Blood Count 5.53 MC/CUMM (3.8-5.5); Red Cell Distribution Width 13.1 % (9.3-17.3); White Blood Count 10.8 T/CUMM (4-12)
[2016-11-24] MEDS ORDERED: ALUM/MAG/SIMETH/LIDO VISC 1:1 30 ML BOTTLE PO STA (00:47)
[2016-11-24 00:48] LABS: Calcium 9.1 MG/DL (8.5-10.1); Magnesium 1.9 MG/DL (1.8-2.4); Osmolality,Calculated 276.5 MOS/KG (273-304); Potassium 3.2 MMOL/L (3.5-5.1)
[2016-11-24] MEDS: ONDANSETRON 4 MG/2 ML VIAL IV PRN ×2 (01:00→19:29)
[2016-11-24] MEDS ORDERED: PROMETHAZINE IV STA (01:02)
[2016-11-24] MEDS ORDERED: SODIUM CHLORIDE 0.9% IV STA (01:02)
[2016-11-24] MEDS ORDERED: HYDROmorphone 2 MG/1 ML VIAL IV STA (01:03)
[2016-11-24] MEDS ORDERED: ONDANSETRON 4 MG/2 ML VIAL ONE (01:03)
[2016-11-24] MEDS ORDERED: PROMETHAZINE 25 MG/1 ML VIAL ONE (01:07)
[2016-11-24] MEDS ORDERED: HYDROmorphone 2 MG/1 ML VIAL ONE (01:07)
--- NOTE | 2016-11-24 01:54 | Hospitalist History & Physical ---
Assessment and Plan (1) Gastritis/duodenitis Status: Acute Assessment and plan: will admit on regular flood for observation start iv fluids antiemetic , iv PPI Current Visit: Yes (2) Hypokalemia, gastrointestinal losses Status: Acute Assessment and plan: will replace K Current Visit: No History of Present Illness Chief complaint: abdiminal cramps and vomiting since 1 day History of present illness: 56 y/o white female presenting to the ED accompanied by with c/o severe abdominal pain with an onset of tonight. Patient states that after eating diner she immediately began to experience abdominal pain, with which nausea and vomiting episodes followed thereafter. She describes her abdominal pain as "feels like someone is taking a knife and cutting my insides out." Patient has been seen twice over the past weekend and was admitted to the hospitalist due to her primary care provider being in [place], [place]. Patient during hospital stay had a GI scope performed and was found to have ulcers and a very inflamed and irritated area. She was discharged november 22 with prescription of PPI. Home Medications Medication Instructions Recorded Confirmed Type Ondansetron Odt Tab [Zofran Odt] 4 mg PO Q6H PRN #12 tablet 11/18/16 11/18/16 Rx HYDROcodone/ACETAMIN 7.5-325 1 tablet PO Q4H PRN #30 tablet 11/22/16 Rx [[place] 7.5-325] Pantoprazole Tab [Protonix Tab] 40 mg PO BID@0700,1900 #60 tablet 11/22/16 Rx Promethazine Tab [Phenergan Tab] 25 mg PO Q6H PRN #30 tablet 11/22/16 Rx Valsartan [Diovan] 80 mg PO DAILY #30 tablet 11/22/16 Rx Zolpidem [Ambien] 10 mg PO BEDTIME #30 tablet 11/22/16 Rx Allergies Allergy/AdvReac Type Severity Reaction Status Date / Time No Known Allergies Allergy Verified 11/18/16 13:56 Medical,Surgical,& Family Hx - Medical History Cardio: History of: Hypertension Neurology: No history of: Brain Aneurysm, Cerebral Hemorrhage, Cerebrovascular Accident , Cerebral Palsy, Dementia, Migraine, Multiple Sclerosis, Parkinson's Disease, Peripheral Neuropathy, Seizures, TIA, Vertigo, Neurologocal Cancer Endocrine: History of: Dyslipidemia No history of: Diabetes Mellitus (IDDM) Gastrointestinal: History of: Diverticulitis/ Diverticulosis, GERD, GI Problems (hx of ulcers) - Surgical History Thoracic Surgeries: Patient denies;: Lobectomy Neurologic Surgeries: Patient denies: Brain Aneurysm, Cerebral Hemorrhage, Neurologic Surgery Abdominal Surgeries: Surgical HX of: Cholecystectomy, Colonoscopy, EGD Reproductive Surgeries: Surgical HX of;: Hysterectomy Orthopedic Surgeries: Surgical HX of;: Total Knee Replacement (left/right) - Family History Family History: Denies;: Family Anesthesia Reaction, Family Cancer, Family Diabetes, Family Heart Disease, Family Hypertension, Family Psychiatric Problems, Family Stroke - Social History Smoking Status: Never smoker Frequency of Alcohol Use: None Type of Drug Use: None 12 point system: reviewed and no additional remarkable complaints except as stated (abdiminal cramps/vomiting) Exam - Constitutional Vitals: Period Temp Pulse Resp BP Sys/Millan Pulse Ox Last 24 Hr 98.1 F-98.1 F 108-110 20-20 154-177/103-130 98 heent, pearle neck, supple. chest clear. cvs, s1 s2. abd, soft, bs+ no tendreness no rebound sponge buffer, alert orientedx3 afocal Results - Labs CBC & BMP: 11/23/16 23:54 11/23/16 23:54
[2016-11-24] MEDS: FAMOTIDINE 20 MG/2 ML VIAL IV SCH ×2 (05:37→14:14)
[2016-11-24] MEDS: MORPHINE 2 MG/1 ML SYRINGE IV PRN ×2 (05:38→09:27)
[2016-11-24 06:25] LABS: Basophils % 0.1 % (0.0-0.8); Hematocrit 40.4 VOL% (35.7-47.0); Hemoglobin 13.5 GM/DL (12.0-16.0); Immature Granulocytes % 0.3 %; Immature Granulocytes Absolute 0.03 #; Lymphocytes # 1.3 10*3/uL (1.4-4.0); Lymphocytes % 14.6 % (21.3-54.2); Mean Corpuscular HGB Conc 33.4 GM/DL (32-36); Mean Corpuscular Hemoglobin 30 PG (27-34); Mean Corpuscular Volume 89.6 FL (87-102); Mean Platelet Volume 9.8 FL (9.6-12.0); Monocytes # 0.4 10*3/uL (0.11-0.8); Monocytes % 4.4 % (1.7-12.7); Neutrophils # 7.3 10*3/uL (1.4-7.4); Neutrophils % 80.6 % (38.7-73.9); Platelet Count 262 T/CUMM (130-400); Red Blood Count 4.51 MC/CUMM (3.8-5.5); Red Cell Distribution Width 13.2 % (9.3-17.3); White Blood Count 9.1 T/CUMM (4-12)
[2016-11-24 06:50] LABS: Calcium 8.1 MG/DL (8.5-10.1); Osmolality,Calculated 281.3 MOS/KG (273-304); Potassium 3.3 MMOL/L (3.5-5.1)
[2016-11-24] MEDS: POTASSIUM CHLORIDE 10 MEQ TABLET PO SCH (09:27)
--- NOTE | 2016-11-24 11:02 | Hospitalist Progress Note ---
Assessment and Plan (1) Abdominal pain Status: Resolved Assessment and plan: Impression: 1. Abdominal pain, likely related to previous diagnosis of gastritis and duodenitis Plan: Continue acid suppression. Hope to discharge in the morning. This note was completed using [employer] voice recognition software. There may be inspector eyeglass errors as a result. Current Visit: No Qualifiers: Abdominal location: left lower quadrant Qualified Code(s): R10.32 - Left lower quadrant pain Hospitalist: Subjective Interval history: Follow-up abdominal pain. The patient came back to the hospital a day after discharge for evaluation of some abdominal pain. This is described in the history and physical. She was apparently sent out on a proton pump inhibitor but says that she did not garbage pick up worker the prescription. She ate some chicken salad, and then noted some knifelike left-sided abdominal pain. She did not have any lower GI complaints. She came to the emergency room, and was admitted. Her only request is that she be switched from morphine to hydromorphone. Review of the old record shows that she had an upper endoscopy with biopsy, and the specimen was negative for H. pylori. Exam - Constitutional Vitals: Period Temp Pulse Resp BP Sys/Millan Pulse Ox Last 24 Hr 97.4 F-98.1 F 99-106 14-20 104-106/73-73 92-95 Vital signs are noted above. Heart is regular with no murmur. Abdomen is soft with some left sided tenderness. She is awake and alert. Results - Labs CBC & BMP: 11/24/16 05:27 11/24/16 05:27 Lab Results: I have reviewed the past 24 hour labs
[2016-11-24] MEDS: HYDROmorphone 2 MG/1 ML VIAL IV PRN ×3 (12:27→20:39)
[2016-11-24] MEDS: SODIUM CHLORIDE 0.9% 1,000 ML IV SCH ×3 (12:28→20:41)
[2016-11-25] MEDS: ONDANSETRON 4 MG/2 ML VIAL IV PRN (00:46)
[2016-11-25] MEDS: HYDROmorphone 2 MG/1 ML VIAL IV PRN ×6 (00:46→22:10)
[2016-11-25] MEDS: FAMOTIDINE 20 MG/2 ML VIAL IV SCH (03:13)
[2016-11-25] MEDS: SODIUM CHLORIDE 0.9% 1,000 ML IV SCH ×3 (04:44→21:21)
[2016-11-25] MEDS: POTASSIUM CHLORIDE 10 MEQ TABLET PO SCH (08:56)
[2016-11-25] MEDS ORDERED: ONDANSETRON ODT 4 MG TABLET PO PRN (10:13)
[2016-11-25] MEDS ORDERED: PROMETHAZINE 25 MG TABLET PO PRN (10:13)
--- NOTE | 2016-11-25 10:21 | Hospitalist Progress Note ---
Assessment and Plan (1) Abdominal pain Status: Resolved Assessment and plan: Impression: 1. Abdominal pain, likely related to previous diagnosis of gastritis and duodenitis Plan: Continue acid suppression. Advance diet. Consider discharge later today if she tolerates a soft diet. This note was completed using [employer] voice recognition software. There may be pharmacist apprentice errors as a result. Current Visit: No Qualifiers: Abdominal location: left lower quadrant Qualified Code(s): R10.32 - Left lower quadrant pain Hospitalist: Subjective Interval history: Follow-up gastritis and duodenitis. The patient reports no vomiting since admission to the floor. She is interested in having her diet advanced. She says that her bowels have not moved since admission. She continues with abdominal pain. Exam - Constitutional Vitals: Period Temp Pulse Resp BP Sys/Millan Pulse Ox Last 24 Hr 97.6 F-98.6 F 74-104 14-20 87-133/53-79 96-98 Vital signs are noted above. Heart is regular with no murmur or gallop. Lungs are clear with no rales or wheezes. Abdomen is soft with occasional bowel sounds and some mild tenderness to palpation. There is no evidence of peritoneal irritation. She is awake and alert Results - Labs CBC & BMP: 11/24/16 05:27 11/24/16 05:27
--- NOTE | 2016-11-25 15:11 | Hospitalist Progress Note ---
Assessment and Plan (1) Abdominal pain Status: Resolved Assessment and plan: Impression: 1. Abdominal pain, likely related to previous diagnosis of gastritis and duodenitis Plan: Continue acid suppression. Advance diet. Discharge in the morning This note was completed using [employer] voice recognition software. There may be digital forensics investigator errors as a result. Current Visit: No Qualifiers: Abdominal location: left lower quadrant Qualified Code(s): R10.32 - Left lower quadrant pain Hospitalist: Subjective Interval history: Follow-up abdominal pain. The patient asked to advance her diet. She continues to complain of some left- sided pain. We talked about possible dietary changes, and the need to shrimp picker her prescription. Nausea has improved. Bowels are moving. Exam - Constitutional Vitals: Period Temp Pulse Resp BP Sys/Millan Pulse Ox Last 24 Hr 97.6 F-98.6 F 74-104 18-20 87-133/53-79 96-98 Vital signs are noted above. Heart is regular with no murmur. Lungs are clear with no rales or wheezes. Abdomen has some left-sided tenderness, but this has improved compared to yesterday's examination. She is awake and alert. Results - Labs CBC & BMP: 11/24/16 05:27 11/24/16 05:27
[2016-11-25] MEDS: PANTOPRAZOLE 40 MG TABLET PO SCH (18:02)
[2016-11-25] MEDS ORDERED: ZALEPLON 5 MG CAPSULE PO SCH (21:00)
[2016-11-26] MEDS: HYDROmorphone 2 MG/1 ML VIAL IV PRN ×3 (01:52→10:22)
[2016-11-26] MEDS: SODIUM CHLORIDE 0.9% 1,000 ML IV SCH (05:05)
[2016-11-26] MEDS: PANTOPRAZOLE 40 MG TABLET PO SCH (06:19)
[2016-11-26] MEDS: POTASSIUM CHLORIDE 10 MEQ TABLET PO SCH (08:07)
--- NOTE | 2016-11-26 11:38 | Discharge Summary ---
Hospital Course - Hospital Course Hospital Course: Discharge diagnosis: 1. Gastritis and duodenitis The patient had just been discharged from the hospital a day or so prior to this admission. At that time, she had presented for evaluation of some abdominal pain. Upper endoscopy showed gastritis and duodenitis. She was sent home with a proton pump inhibitor, and did not get the prescription filled. She came back to the emergency room complaining of abdominal pain. She was readmitted. She took several days of IV opioids, and then decided that she was ready to go home. She still complained of abdominal pain. She was tolerating a diet. She has now reached maximal hospital benefit, so we will discharge her home. Medication reconciliation has been performed. Regular diet. Activity as tolerated. This note was completed using [employer] voice recognition software. There may be termite control servicer errors as a result. Diagnosis - Discharge Diagnosis (1) Abdominal pain Status: Resolved Discharge Plan - Discharge Data Disposition: Disch To Home/Self Care Condition at Discharge: Stable Discharge Diet: advance to your usual diet Activity: resume usual activities as tolerated Hygiene: no restrictions Weight Bearing at Discharge: full weight bearing Driving: no restrictions - Discharge Medications Continue Pantoprazole Tab [Protonix Tab] 40 mg PO BID@0700,1900 #60 tablet Promethazine Tab [Phenergan Tab] 25 mg PO Q6H PRN #30 tablet PRN Reason: Nausea/Vomiting Zolpidem [Ambien] 10 mg PO BEDTIME #30 tablet Ondansetron Odt Tab [Zofran Odt] 4 mg PO Q6H PRN #12 tablet PRN Reason: Nausea HYDROcodone/ACETAMIN 7.5-325 [[place] 7.5-325] 1 tablet PO Q4H PRN #30 tablet PRN Reason: Pain Moderate (4-7) - Follow Up or Referral - Forms/Instructions Exam - Constitutional Vitals: Period Temp Pulse Resp BP Sys/Millan Pulse Ox Last 24 Hr 96.4 F-98.9 F 75-105 16-20 104-134/52-76 95-99 Vital signs are noted above. Heart is regular with no murmur or gallop. Lungs are clear with no rales or wheezes. Abdomen has good bowel sounds, and is less tender than yesterday. She is awake and alert. DS: Provider Date of admission: 11/24/16 01:57 Primary care physician: . No PCP Attending physician on admission: Govind Dale MD Discharging clinician: Donovan Davidson MD Expected date of discharge: 11/26/16
[2016-11-26 12:12] VITALS: BP 121/58
== END 2016-11-26 12:39 | disposition home or self-care (01) | DRG 392 ==
LOC: EDUNIT# → EDBD → N.ED 23:05 → N.EDINP 11-24 01:57 → SUATTDRO 11-24 01:57 → N.2E 11-24 04:13
PROVIDERS: ADMIT Emergency Medicine; ATTEND Internal Medicine Geriatric Medicine